=== PATIENT | female | born 1960 | race Caucasian/White ===

== ENCOUNTER 2019-09-05 14:35 | Emergency (ER) | payer BC, SELFPAY ==
[2019-09-05 14:36] VITALS: BP 129/71; PULSE 78; RESP 16; TEMP 34.9; O2SAT 97; BMI 31.7
--- NOTE | 2019-09-05 15:11 | CT_ITS ---
STUDY: CT BRAIN WITHOUT CONTRAST REASON FOR EXAM: Female, 59 years old. HEADACHE, TINGLING IN HEAD RADIATION DOSAGE (If Supplied By Facility): CTDIvol = ( 44.99 ) mGy, DLP = ( 762.36 ) mGycm TECHNIQUE: Transaxial CT imaging of the brain was performed without administration of intravenous contrast material. Individualized dose optimization techniques were used for this CT. COMPARISON: No relevant priors. FINDINGS: Normal soft tissue structures. Normal calvarium. Encephalomalacia and gliosis of the right temporal parietal lobe with aneurysm surgical clip in the right middle cranial fossa. Craniotomy of the right temporal bone noted. There are areas of decreased attenuation within the white matter tracts of the supratentorial brain, consistent with microvascular disease changes. Normal basal ganglia and thalami. Normal brainstem. Normal cerebellum. There is no intracranial hemorrhage. There are no findings of an acute ischemic infarction. Normal visualized paranasal sinuses. CT/Brain/Head without Contrast IMPRESSION: 1. No acute intracranial hemorrhage or mass effect. 2. Postoperative/post ischemic encephalomalacia and gliosis of the right temporoparietal lobe with right temporal craniotomy and aneurysm clipping. No comparison studies are available. Electronically Signed: Jameel Rain MD ([facility]) at 16:39 EST , Service support ,
[2019-09-05] MEDS: 0.9% Normal Saline 1,000 ML 999 ML IV (15:30)
[2019-09-05] MEDS: Metoclopramide 10 MG/2 ML Vial IV (15:31)
[2019-09-05] MEDS: DiphenhydrAMINE 50 MG/ML Syringe 25 MG IV (15:31)
[2019-09-05 16:35] VITALS: BP 126/80; PULSE 61; RESP 16; O2SAT 98
--- NOTE | 2019-09-05 17:35 | ED.VISSUMM ---
- ER Visit Summary Date of Service: 09/05/19 Chief Complaint: Headache History of Present Illness: The patient is a 59 F who presents with a headache that began yesterday. Patient states the pain is localized to the right side of her head. Patient describes the pain as sharp. Patient admits to some intermittent blurry vision and photophobia. Patient also admits to mild sore throat. Patient denies any nausea or vomiting. Patient denies any paresthesias or weakness. Patient states nothing makes her headache better or worse. Patient states she has a history of 2 cerebral aneurysms. Patient states 1 of them on the right side of her head was clipped. Patient states the other aneurysm was at the base of her brain and she did not have that aneurysm clipped. Physical Examination: Vital signs are stable. Patient is afebrile. Patient is in no acute distress. Oral mucosa is pink and moist. Neck is supple. Trachea is midline. There is no JVD. Heart was regular rate and rhythm. Lungs are clear and equal bilaterally. Abdomen is soft and nontender. Cranial nerves II through XII are intact. There are no focal motor or sensory deficits noted. Test Results: Due to her history of cerebral aneurysms, CT scan of the brain was obtained. There is no acute intracranial bleeding. This was interpreted by the radiologist and myself. Emergency Department Course and Treatment: Patient was given IV fluids. Patient was given Reglan and Benadryl here. Patient felt better on reevaluation. Patient was instructed to rest in a dark quiet room. Patient was instructed to follow-up with her primary care physician in 5 to 7 days. Patient understood and was agreeable with the plan. All questions were answered. Disposition: Discharge home Impression: Headache This note was generated with [employer] dictation software. It may contain incorrect words, spelling, and punctuation that were not noted in review of the chart prior to signing ED Disposition - Plan for ED Patient: Disposition: Home or Assisted Living Diagnosis: Headache Instructions: HEADACHE, Unspecified Referrals: LORA PEREZ [Other] - 5-7 Days
[2019-09-05 18:14] VITALS: BP 150/81; PULSE 58; RESP 16; O2SAT 98
== END 2019-09-05 18:15 | disposition home or self-care (01) ==
PROVIDERS: Emergency Provider Emergency Medicine
DX: R51 Headache (principal); I67.1 Cerebral aneurysm, nonruptured; J02.9 Acute pharyngitis, unspecified; M54.9 Dorsalgia, unspecified; H53.8 Other visual disturbances; F32.9 Major depressive disorder, single episode, unspecified; Z72.0 Tobacco use
CPT/HCPCS: 70450; 96361; 96374; 96375; 99285; J7030; A4216